=== PATIENT | male | born 1995 | race Two or more races ===

== ENCOUNTER 2016-10-05 23:30 | Emergency (ER) | payer MEDICAID ==
[~2016-10-05] VITALS: Ht 172.7 cm; Wt 68.0 kg
[2016-10-05 23:30] VITALS: BP 124/75
[2016-10-06] MEDS ORDERED: ONDANSETRON 4 MG TAB.RAPDIS ONE (00:18)
[2016-10-06] MEDS ORDERED: HYDROCODONE/APAP 10/325MG 1 EA TABLET ONE (00:18)
[2016-10-06] MEDS ORDERED: oxyCODONE/APAP (5/325 MG) 1 UDTAB TABLET ONE (00:22)
[2016-10-06] MEDS ORDERED: IBUPROFEN 400 MG TABLET ONE (00:22)
[2016-10-06] MEDS ORDERED: HYDROCODONE/APAP 10/325MG 1 EA TABLET PO ONE (00:30)
[2016-10-06] MEDS ORDERED: IBUPROFEN 400 MG TABLET PO ONE (00:30)
[2016-10-06] MEDS ORDERED: oxyCODONE/APAP (5/325 MG) 1 UDTAB TABLET PO ONE (00:30)
[2016-10-06] MEDS ORDERED: ONDANSETRON 4 MG TAB.RAPDIS SL ONE (00:30)
== END 2016-10-06 00:32 | disposition home or self-care (01) ==
LOC: ER 23:33
DX: S00.33XA Contusion of nose, initial encounter (principal); S20.212A Contusion of left front wall of thorax, initial encounter; S00.83XA Contusion of other part of head, initial encounter; Y04.0XXA Assault by unarmed brawl or fight, initial encounter; Y92.89 Other specified places as the place of occurrence of the external cause; Y93.89 Activity, other specified; Y99.8 Other external cause status
CPT/HCPCS: 99284; A4606; Q0162; Z7610

== ENCOUNTER 2016-12-23 19:30 | Emergency (ER) | payer MEDICAID ==
[~2016-12-23] VITALS: Ht 170.2 cm; Wt 54.4 kg
--- NOTE | 2016-12-23 19:52 | NUR ---
Pt bib self c/o "coughing up blood since i woke up" "left foot is asleep", NAD noted. Pt ambulatory. VSS. Awaiting md order
--- NOTE | 2016-12-23 19:58 | NUR ---
Shannan NEWS LIBRARY DIRECTOR at bedside for eval
--- NOTE | 2016-12-23 20:00 | NUR ---
called RT for breathing tx
--- NOTE | 2016-12-23 20:00 | NUR ---
Lab at bedside blood collected sent to lab
[2016-12-23] MEDS ORDERED: ALBUTEROL FS 2.5 MG/3 ML VIAL.NEB ONE (20:12)
--- NOTE | 2016-12-23 20:16 | NUR ---
xray at bedside
[2016-12-23] MEDS ORDERED: ALBUTEROL FS 2.5 MG/3 ML VIAL.NEB NEB ONE (20:30)
[2016-12-23 20:55] LABS: CALCIUM, SERUM 8.5 mg/dL (8.5-10.1); CREATININE 1.4 mg/dL (0.6-1.3); POTASSIUM 4.4 mmol/L (3.5-5.1)
[2016-12-23 20:57] LABS: BASOPHILS % (AUTO) 0.1 % (0.0-2.0); HEMATOCRIT 43 % (39-51); HEMOGLOBIN 13.9 g/dL (13.5-17.5); LYMPHOCYTES # (AUTO) 0.6 /CMM (0.8-4.8); LYMPHOCYTES % (AUTO) 2.2 % (20.0-44.0); MEAN CORPUSCULAR HEMOGLOBIN 27 PG (26.0-33.0); MEAN CORPUSCULAR HGB CONC 32 g/dl (31.0-36.0); MEAN CORPUSCULAR VOLUME 83 fL (80-96); MONOCYTES # (AUTO) 1.2 /CMM (0.1-1.30); MONOCYTES % (AUTO) 4.2 % (2.0-12.0); NEUTROPHILS # (AUTO) 26.5 /CMM (1.8-8.9); NEUTROPHILS % (AUTO) 93.5 % (43.0-81.0); PLATELET COUNT (AUTO) 314 /CMM (150-450); RDW COEFFICIENT OF VARIATION 13.6 (11.5-15.0); RED BLOOD CELL COUNT(AUTO) 5.24 MIL/uL (4.5-6.0); WHITE BLOOD COUNT (AUTO) 28.3 K/uL (4.3-11.0)
[2016-12-23] MEDS ORDERED: LEVOFLOXACIN (500MG) 500 MG TABLET PO ONE (21:30)
[2016-12-23] MEDS ORDERED: LEVOFLOXACIN (500MG) 500 MG TABLET ONE (21:37)
--- NOTE | 2016-12-23 21:39 | NUR ---
Patient discharged to home in stable condition. Written and verbal after care instructions given. Patient verbalizes understanding of instruction.
[2016-12-23 21:52] VITALS: BP 130/80
== END 2016-12-23 21:53 | disposition home or self-care (01) ==
LOC: ER 19:33
DX: J18.9 Pneumonia, unspecified organism (principal); J20.9 Acute bronchitis, unspecified; J45.909 Unspecified asthma, uncomplicated; K29.20 Alcoholic gastritis without bleeding; F17.200 Nicotine dependence, unspecified, uncomplicated; F12.90 Cannabis use, unspecified, uncomplicated; F41.9 Anxiety disorder, unspecified
CPT/HCPCS: 36415; 71010; 80048; 85025; 94640; 99285; A4606; Z7610

== ENCOUNTER 2017-02-16 19:30 | Inpatient (IN) | payer MEDICAID ==
[~2017-02-16] VITALS: Ht 172.7 cm; Wt 60.8 kg
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
[2017-02-16] MEDS ORDERED: NALOXONE HCL 0.4 MG/ML AMPUL ONE (19:37)
--- NOTE | 2017-02-16 19:45 | NUR ---
PATIENT IS FULLY AWAKE THIS TIME. REORIENTATION DONE. SAFETY MAINTAINED. VSS. SPONTANEOUSLY BREATHING EVEN AND UNLABORED. ABLE TO STAND AND WALK WITH STEADY GAIT. ENCOURAGED TO OBSERVE SAFETY MEASURES.
[2017-02-16 19:51] LABS: BASOPHILS # (AUTO) 0.1 /CMM (0.0-0.2); BASOPHILS % (AUTO) 0.6 % (0.0-2.0); EOSINOPHILS # (AUTO) 0.5 /CMM (0.0-0.7); EOSINOPHILS % (AUTO) 4.1 % (0.0-6.0); HEMATOCRIT 44 % (39-51); LYMPHOCYTES # (AUTO) 4.2 /CMM (0.8-4.8); LYMPHOCYTES % (AUTO) 33.2 % (20.0-44.0); MEAN CORPUSCULAR HEMOGLOBIN 27 PG (26.0-33.0); MEAN CORPUSCULAR HGB CONC 32 g/dl (31.0-36.0); MEAN CORPUSCULAR VOLUME 84 fL (80-96); MONOCYTES # (AUTO) 1.3 /CMM (0.1-1.30); MONOCYTES % (AUTO) 10.4 % (2.0-12.0); NEUTROPHILS # (AUTO) 6.5 /CMM (1.8-8.9); NEUTROPHILS % (AUTO) 51.7 % (43.0-81.0); PLATELET COUNT (AUTO) 328 /CMM (150-450); RDW COEFFICIENT OF VARIATION 12.4 (11.5-15.0); RED BLOOD CELL COUNT(AUTO) 5.28 MIL/uL (4.5-6.0); WHITE BLOOD COUNT (AUTO) 12.6 K/uL (4.3-11.0)
[2017-02-16] MEDS ORDERED: IV NS 0.9% 1,000 ML ONE ×2 (19:55→23:41)
[2017-02-16] MEDS ORDERED: IV SET PRIMARY 1 EA INFUS.SET MC ONE (19:55)
[2017-02-16 20:00] LABS: CALCIUM, SERUM 8.8 mg/dL (8.5-10.1); CARBON DIOXIDE 31 mmol/L (21-32); CHLORIDE 104 mmol/L (98-107); CREATININE 1.3 mg/dL (0.6-1.3); GLUCOSE 177 mg/dL (74-106); POTASSIUM 3.6 mmol/L (3.5-5.1); SODIUM SERUM 141 mmol/L (136-145); UREA NITROGEN, BLOOD 13 mg/dL (7-18)
[2017-02-16] MEDS ORDERED: NALOXONE HCL 0.4 MG/ML AMPUL IV ONE ×2 (20:00→21:30)
[2017-02-16] MEDS ORDERED: IV NS 0.9% 1,000 ML BAG IV ONE (20:00)
--- NOTE | 2017-02-16 20:01 | NUR ---
PATIENT TO CT.
[2017-02-16 20:02] LABS: ABG BASE EXCESS -2.6 mmol/L; ABG OXYGEN SATURATION 94.7 % (92.0-98.5); ABG PCO2 45.1 mmHg (35.0-45.0); ABG PH 7.333 (7.350-7.450); ABG PO2 79.9 mmHg (75.0-100.0); AaDO2 15.8 mmHg; COHb 0.7 % (0.5-1.5); MetHb 0.4 % (0.0-1.5); O2Hb 93.7 % (94.0-97.0); SITE, ABG Right Radial; VENT MODE, BG Room Air
[2017-02-16 20:03] LABS: INR 0.96 (0.87-1.13)
--- NOTE | 2017-02-16 20:05 | NUR ---
Patient returned from ct. Per radiology, patient was resisting to go into the cat scan room, grabbing doors and not cooperating/following instructions in [facility]. Dr Cortes notified.
[2017-02-16 20:07] LABS: TROPONIN I < 0.017 ng/mL (0.00-0.056)
[2017-02-16 20:16] LABS: ALANINE AMINOTRANSFERASE 37 U/L (12-78); ALBUMIN 3.7 g/dL (3.4-5.0); ALKALINE PHOSPHATASE 79 U/L (46-116); ASPARTATE AMINOTRANSFERASE 54 U/L (15-37); BILIRUBIN,DIRECT 0.1 mg/dL (0.0-0.2); BILIRUBIN,TOTAL 0.4 mg/dL (0.2-1.0); TOTAL PROTEIN, SERUM 7.3 g/dL (6.4-8.2)
--- NOTE | 2017-02-16 20:21 | NUR ---
Mother at bedside. Patient asked for water and was given with ice chips as Dr Cortes is "okay"
[2017-02-16 20:22] LABS: ACETAMINOPHEN < 2 ug/ml (10-30); SALICYLATE < 2.8 mg/dL (2.8-20.0)
--- NOTE | 2017-02-16 20:47 | NUR ---
urine collected via clean catch, lab called for belt picker.
--- NOTE | 2017-02-16 21:01 | NUR ---
CALLED NURSING OPERATION SPECIALIST FOR MICHELINE BED
[2017-02-16 21:14] LABS: APPEARANCE,URINE Clear (CLEAR); BILIRUBIN,URINE Negative (NEGATIVE); BLOOD, URINE Negative Ery/uL (NEGATIVE); COLOR,URINE Yellow (YELLOW); KETONES,URINE Negative (NEGATIVE); LEUKOCYTE ESTERASE ,URINE Negative (NEGATIVE); NITRITE, URINE Negative (NEGATIVE); PROTEIN,URINE 30 mg/dl (NEGATIVE); UGLUCOSE Negative (NEGATIVE); UROBILINOGEN,URINE 0.2 EU/dL (0.2)
[2017-02-16] MEDS ORDERED: NALOXONE PREFILLED SYRINGE 2 MG/2 ML SYRINGE ONE (21:16)
--- NOTE | 2017-02-16 21:23 | NUR ---
Narcan 2mg given ivp per Dr Cortes at bedside. Patient woke up after about a minute, reorientation done. safety maintained. and patient agreed for ct scan. called radiology.
[2017-02-16 21:34] LABS: BACTERIA,URINE Few /HPF (None Seen); RBC,URINE 0-2 /HPF (0-2); SQUAMOUS EPITHELIAL CELL,UR Few /HPF (None Seen); WBC,URINE 0-2 /HPF (0-3)
[2017-02-16] MEDS ORDERED: ONDANSETRON HCL/PF 4 MG/2 ML VIAL IVP PRN (22:00)
[2017-02-16] MEDS ORDERED: INSULIN REGULAR, HUMAN 100 UNIT/ML 3 ML VIAL SQ PRN (22:00)
[2017-02-16] MEDS ORDERED: ACETAMINOPHEN 325 MG TABLET PO PRN (22:00)
[2017-02-16] MEDS ORDERED: Z GUARD REMEDY 2 OZ OINT TP PRN (22:00)
[2017-02-16] MEDS ORDERED: MAGNESIUM HYDROXIDE 30 ML UDC PO PRN (22:00)
[2017-02-16] MEDS ORDERED: DEXTROSE 50%-WATER 50 ML DISP.SYRIN IV PRN (22:00)
--- NOTE | 2017-02-16 22:11 | NUR ---
Spoke with Erna, see supervisor, for icu bed.
--- NOTE | 2017-02-16 22:15 | NUR ---
ROOM 260 ICU BED
--- NOTE | 2017-02-16 22:33 | NUR ---
PT TRANSFERRED TO ROOM 260 IN STABLE CONDITION VIA ACLS PROTOCOL.
[2017-02-16] MEDS ORDERED: ALPR1TAB7 PO (22:51)
[2017-02-16 23:00] VITALS: BP 127/63
[2017-02-16] MEDS ORDERED: IV SET PRIMARY PUMP SET 1 EA INFUS.SET MC ONE (23:41)
[2017-02-16] MEDS: BLOOD SUGAR DIAGNOSTIC 1 EACH STRIP IN SCH (23:59)
[2017-02-17] VITALS (13 sets, daily range): BP systolic 98–137; BP diastolic 49–87
[2017-02-17] MEDS: IV NS 0.9% 1,000 ML BAG IV SCH ×3 (01:30→06:39)
[2017-02-17 04:56] LABS: BASOPHILS % (AUTO) 0.3 % (0.0-2.0); EOSINOPHILS # (AUTO) 0.2 /CMM (0.0-0.7); EOSINOPHILS % (AUTO) 2.6 % (0.0-6.0); HEMATOCRIT 36 % (39-51); HEMOGLOBIN 11.9 g/dL (13.5-17.5); LYMPHOCYTES # (AUTO) 1.8 /CMM (0.8-4.8); LYMPHOCYTES % (AUTO) 24.5 % (20.0-44.0); MEAN CORPUSCULAR HEMOGLOBIN 28 PG (26.0-33.0); MEAN CORPUSCULAR HGB CONC 33 g/dl (31.0-36.0); MEAN CORPUSCULAR VOLUME 83 fL (80-96); MONOCYTES # (AUTO) 0.6 /CMM (0.1-1.30); NEUTROPHILS # (AUTO) 4.8 /CMM (1.8-8.9); NEUTROPHILS % (AUTO) 64.6 % (43.0-81.0); PLATELET COUNT (AUTO) 219 /CMM (150-450); RDW COEFFICIENT OF VARIATION 13.2 (11.5-15.0); RED BLOOD CELL COUNT(AUTO) 4.31 MIL/uL (4.5-6.0); WHITE BLOOD COUNT (AUTO) 7.5 K/uL (4.3-11.0)
[2017-02-17 05:16] LABS: CREATININE 0.9 mg/dL (0.6-1.3); MAGNESIUM 1.8 mg/dL (1.8-2.4); PHOSPHORUS 3.4 mg/dL (2.5-4.9)
[2017-02-17] MEDS ORDERED: IV NS 0.9% 1,000 ML ONE (06:32)
--- NOTE | 2017-02-17 07:05 | NUR ---
BATCH TESTER NOTES RECEIVED PATIENT AWAKE , ALERT X 3 , LETHARGIC , NOT IN ACUTE DISTRESS , DENIES SOB AND DISCOMFORT AT THIS TIME , SPO2 OF 97% VIA RA , SB 59 ON BEDSIDE MONITOR , IV OF L AC # 18 AND R AC # 18 PATENT AND INTACT WITH NS @ 150ML/HR INFUSING WELL , ALL NEEDS ATTENDED , BED ON LOW AND LOCKED POSITION , SIDE RAILS X2 ,CALL LIGHT WITHIN REACH , HOB @ 45 , WILL CONTINUE TO MONITOR
[2017-02-17] MEDS: BLOOD SUGAR DIAGNOSTIC 1 EACH STRIP IN SCH ×4 (07:30→22:15)
--- NOTE | 2017-02-17 07:30 | NUR ---
NIGHT BAKER NOTES PT REFUSES ACCUCHECK , EXPLAINED THE BENEFITS OF IT , PATIENT VERBALIZED UNDERSTANDING , STILL REFUSES
--- NOTE | 2017-02-17 07:45 | NUR ---
INTERIM CONTROLLER NOTES PT ABLE TO TOLERATE REGULAR DIET , NO S/S OF ASPIRATION , MORE AWAKE AND ALERT X3 , WILL CONTINUE TO MONITOR
[2017-02-17] MEDS ORDERED: IV NS 0.9% 1,000 ML BAG IV SCH (09:00)
--- NOTE | 2017-02-17 09:00 | NUR ---
POSTPARTUM NURSE NOTES TRANSFERRED PT TO ROOM 323 - 1 VIA ACLS PROTOCOL , PT STABLE AT THIS TIME , REPORT GIVEN TO MERCED FOR CONTINUITY OF CARE
--- NOTE | 2017-02-17 09:15 | NUR ---
MS RN RECEIVED A NEW TRANSFER FROM ICU, A 21 YEAR OLD MALE, CAME IN W/ DRUG OVERDOSE, PATIENT IS VERY LETHARGIC, V/S STABLE, NSR ON MONITOR.
--- NOTE | 2017-02-17 09:30 | NUR ---
MS RN REFUSED BREAKFAST, STILL LETHARGIC.
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
--- NOTE | 2017-02-17 12:00 | NUR ---
MS RN PATIENT REFUSED TO CHECK SUGAR AT THIS TIME, SLEEPING A LOT.
--- NOTE | 2017-02-17 12:53 | NUR ---
WOUND CARE CONSULT: PT NOT SEEN YET FOR SKIN ASSESSMENT DUE TO PT SLEEPING SOUNDLY AT THIS TIME. WILL SEE PT PT CONDITION PERMITS. PER NURSING STAFF. PT HAS DRY ABRASIONS TO FACE.
[2017-02-17] MEDS: IV NS 0.9% 1,000 ML IV PRN ×2 (14:41→22:16)
[2017-02-17] MEDS: HYDROCODONE/APAP 5/325MG 1 EACH TABLET PO PRN ×2 (17:26→22:30)
--- NOTE | 2017-02-17 17:53 | NUR ---
MS RN ON BED, COMPLAIN OF PAIN ,CHARGE NURSE NOTIFIED, CHEST PAIN - OK TO GIVE NORCO PER CHARGE NURSE.
--- NOTE | 2017-02-17 18:00 | NUR ---
MS RN BLOOD SUGAR - 88 - NO COMPLAIN NOTED.
--- NOTE | 2017-02-17 19:57 | NUR ---
tele/rn opening notes patient in bed, awake. assisted for comfort . able to verbalize needs. can respond and cooperate. informed the need to use call light for assistance and for safety. will check any pain or any s/s of discomfort will continue to monitor. call lights within reach. water pitcher at bedside. bed in lock position monitoring for s/s of hypo/hyperglycemiaam rn gave endorsement for plan of care.
--- NOTE | 2017-02-17 22:26 | NUR ---
tele/rn notes patient awake, alertx3 can verbalize needs. cooperative to care. bs check at 97 w/ no coveerage. Able to eat some vegetables. ate half of plate and requeted for snacks, provided needs at all times. reported pain of 7/10in lower back. will adm po med norco 5/325 mg tab and monitor its effectiveness.
[2017-02-18] VITALS: BP 125/84
[2017-02-18 04:00] VITALS: BP 128/51
[2017-02-18] MEDS: BLOOD SUGAR DIAGNOSTIC 1 EACH STRIP IN SCH ×2 (06:36→12:16)
[2017-02-18 06:59] VITALS: BP 119/71
[2017-02-18 08:00] VITALS: BP 119/71
--- NOTE | 2017-02-18 08:09 | NUR ---
SCIENTIFIC PROGRAMMER ANALYST OPENING NOTES RECEIVED PATIENT ON BED SLEEPING, EASILY AROUSES. ALERT AND ORIENTED X 4. RESPIRATIONS EVEN AND UNLABORED. NO ACUTE DISTRESS NOTED. TELEMETRY SR 60. PATIENT HAS FACIAL ABRASIONS. IV SITE INTACT AND PATENT. BED IN LOWEST POSITION, CALL LIGHT WITHIN REACH. WILL CONTINUE TO MONITOR
[2017-02-18 08:23] LABS: BASOPHILS % (AUTO) 0.3 % (0.0-2.0); EOSINOPHILS # (AUTO) 0.2 /CMM (0.0-0.7); HEMATOCRIT 38 % (39-51); HEMOGLOBIN 12.5 g/dL (13.5-17.5); LYMPHOCYTES # (AUTO) 1.8 /CMM (0.8-4.8); LYMPHOCYTES % (AUTO) 28.3 % (20.0-44.0); MEAN CORPUSCULAR HEMOGLOBIN 27 PG (26.0-33.0); MEAN CORPUSCULAR HGB CONC 33 g/dl (31.0-36.0); MEAN CORPUSCULAR VOLUME 83 fL (80-96); MONOCYTES # (AUTO) 0.5 /CMM (0.1-1.30); MONOCYTES % (AUTO) 8.3 % (2.0-12.0); NEUTROPHILS # (AUTO) 3.8 /CMM (1.8-8.9); NEUTROPHILS % (AUTO) 60.1 % (43.0-81.0); PLATELET COUNT (AUTO) 233 /CMM (150-450); RDW COEFFICIENT OF VARIATION 12.9 (11.5-15.0); RED BLOOD CELL COUNT(AUTO) 4.61 MIL/uL (4.5-6.0); WHITE BLOOD COUNT (AUTO) 6.4 K/uL (4.3-11.0)
[2017-02-18 08:34] LABS: CALCIUM, SERUM 8.3 mg/dL (8.5-10.1); CREATININE 0.7 mg/dL (0.6-1.3); MAGNESIUM 1.5 mg/dL (1.8-2.4)
[2017-02-18] MEDS: IV NS 0.9% 1,000 ML IV PRN (11:15)
--- NOTE | 2017-02-18 12:01 | NUR ---
DESTIN met with pt. bedside to give him resources to alcohol and drug treatment programs. DESTIN gave pt. list of alcohol and drug treatment programs which included: [facility] ), [facility] , [facility] , [facility] , [facility] to name a few. DESTIN also gave pt. phone number to [facility] and mental health referrals to [facility] , [facility] and [facility] . DESTIN also sent an email to Mickey Covarrubias ([email or web address]) in intake and clinical director Tania Doll ([email or web address]) at [facility] inquiring if they have any availability in their inpatient treatment program for pt. with [employer] insurance.
[2017-02-18] MEDS ORDERED: Magnesium 1GM/D5W 100ML PREMIX 100 ML IV SCH (12:06)
[2017-02-18] MEDS ORDERED: SECONDARY IV SET 1 EA INFUS.SET MC ONE (13:25)
--- NOTE | 2017-02-18 13:58 | NUR ---
DESTIN met with pt. bedside to inform him that [facility] in [place] has an opening and if he would like to go there. Pt. declined and stated he will follow up on his own with the resources that were given to him by DESTIN.
[2017-02-18 15:00] VITALS: BP 121/71
--- NOTE | 2017-02-18 15:15 | NUR ---
IV SITE DISCONTINUED, NO REDNESS, NO BLEEDING. PATIENT TOLERATED WELL.
--- NOTE | 2017-02-18 15:25 | NUR ---
PATIENT DISCHARGED ACCOMPANIED BY MOTHER. DISCHARGE TEACHING AND EXIT CARE DONE. PATIENT STABLE VITAL SIGNS.
== END 2017-02-18 15:30 | disposition home or self-care (01) | DRG 816 ==
LOC: ER 19:31 → TELE-TD 21:43 → ICU 22:43 → TELE 02-17 08:43 → MED 02-18 11:15
PROVIDERS: ADMIT Family Medicine; ATTEND Family Medicine
DX: T40.1X1A Poisoning by heroin, accidental (unintentional), initial encounter (principal); G92 Toxic encephalopathy; R56.9 Unspecified convulsions; J45.909 Unspecified asthma, uncomplicated; T40.4X1A Poisoning by other synthetic narcotics, accidental (unintentional), initial encounter; F17.210 Nicotine dependence, cigarettes, uncomplicated; D72.829 Elevated white blood cell count, unspecified; R73.9 Hyperglycemia, unspecified; Y92.009 Unspecified place in unspecified non-institutional (private) residence as the place of occurrence of the external cause
CPT/HCPCS: 36415; 36600; 70450-TC; 71010-TC; 80048-TC; 80076-TC; 80305; 81000-TC; 82962-TC; 83735-TC; 84100-TC; 84484-TC; 85025-TC; 85730-TC; 87081-TC; A4606; G0480; J1815; J2310; J3475; J7030; Z7610

== ENCOUNTER → 2020-05-30 | Emergency (ER) | payer MEDICAID ==
[~2020-05-30] VITALS: Ht 172.7 cm; Wt 71.7 kg
[~2020-05-30] MED LIST: ALPR1TAB7 PO; IV NS 0.9% 1,000 ML BAG IV ONE; MORPHINE SULFATE INJ 2 MG/ML DISP.SYRIN IV ONE; MORPHINE SULFATE INJ 2 MG/ML DISP.SYRIN ONE; MORPHINE SULFATE INJ 4 MG/ML DISP.SYRIN ONE; ONDANSETRON HCL/PF 4 MG/2 ML VIAL IVP ONE; ONDANSETRON HCL/PF 4 MG/2 ML VIAL ONE
--- NOTE | 2020-05-30 17:38 | NUR ---
came in for nausea x 2 days. to ER bed 10, hooked to BP cuff and POX, changed to hosp gown, warm blanket provided, patient AAO x 4, breathing even and unlabored, NAD noted. awaiting MD mckeon.
--- NOTE | 2020-05-30 18:10 | NUR ---
urine sample collected and sent to lab
[2020-05-30 18:14] LABS: BASOPHILS % (AUTO) 0.3 % (0.0-2.0); EOSINOPHILS % (AUTO) 0.8 % (0.0-6.0); HEMATOCRIT 44 % (39-51); HEMOGLOBIN 14.7 g/dL (13.5-17.5); LYMPHOCYTES # (AUTO) 1.1 /CMM (0.8-4.8); LYMPHOCYTES % (AUTO) 14.1 % (20.0-44.0); MEAN CORPUSCULAR HGB CONC 33 g/dl (31.0-36.0); MEAN CORPUSCULAR VOLUME 82 fL (80-96); MONOCYTES # (AUTO) 0.8 /CMM (0.1-1.30); NEUTROPHILS % (AUTO) 74.8 % (43.0-81.0); PLATELET COUNT (AUTO) 310 /CMM (150-450); RED BLOOD CELL COUNT(AUTO) 5.39 MIL/uL (4.5-6.0)
[2020-05-30 18:33] LABS: ALBUMIN 4.1 g/dL (3.4-5.0); BILIRUBIN,DIRECT 0.2 mg/dL (0.0-0.2); BILIRUBIN,TOTAL 0.9 mg/dL (0.2-1.0); CALCIUM, SERUM 9.7 mg/dL (8.5-10.1); CREATININE 1.1 mg/dL (0.6-1.3); TOTAL PROTEIN, SERUM 8.1 g/dL (6.4-8.2)
[2020-05-30 18:51] LABS: POTASSIUM 3.6 mmol/L (3.5-5.1)
[2020-05-30 19:10] VITALS: BP 124/79
--- NOTE | 2020-05-30 19:16 | NUR ---
REPORT GIVEN TO RG RAM FOR JANIE
[2020-05-30 19:50] LABS: APPEARANCE,URINE CLEAR (CLEAR); BILIRUBIN,URINE SMALL (NEGATIVE); BLOOD, URINE NEGATIVE Ery/uL (NEGATIVE); COLOR,URINE DARK YELLO (YELLOW); KETONES,URINE 40 (NEGATIVE); LEUKOCYTE ESTERASE ,URINE NEGATIVE (NEGATIVE); NITRITE, URINE NEGATIVE (NEGATIVE); PH,URINE 8.5 (5.0-8.0); PROTEIN,URINE 30 mg/dl (NEGATIVE); UGLUCOSE NEGATIVE (NEGATIVE); UROBILINOGEN,URINE 0.2 EU/dL (0.2)
--- NOTE | 2020-05-30 19:58 | NUR ---
URINE COLELCTED AND SEN TTO LAB. SPOKE TO PT'S MOTHER REGARDING PLAN OF CARE.
[2020-05-30 20:08] LABS: BACTERIA,URINE None seen /HPF (None Seen); RBC,URINE 0-2 /HPF (0-2); SQUAMOUS EPITHELIAL CELL,UR None Seen /HPF (None Seen); WBC,URINE 0-2 /HPF (0-3)
[2020-05-30 20:09] LABS: MUCUS,URINE Few /LPF (None Seen); URINE AMORPHOUS PHOSPHATES Few /HPF (None Seen)
--- NOTE | 2020-05-30 20:27 | NUR ---
IV removed. Catheter intact and site benign. Pressure and 4x4 applied to site. No bleeding noted.
--- NOTE | 2020-05-30 20:27 | NUR ---
Patient discharged to home in stable condition. Written and verbal after care instructions given. Patient verbalizes understanding of instruction and rx. Pt ambulated with steady gait. vss.
--- NOTE | 2020-05-30 20:37 | NUR ---
UNABLE TO DEPART DUE TO COMPLICATION OF MEDICT.
== END | disposition home or self-care (01) ==
LOC: ER 17:36
DX: R10.32 Left lower quadrant pain (principal); K59.00 Constipation, unspecified; R11.2 Nausea with vomiting, unspecified; J45.909 Unspecified asthma, uncomplicated; F17.200 Nicotine dependence, unspecified, uncomplicated; Z79.899 Other long term (current) drug therapy
CPT/HCPCS: 36415; 74176; 80048; 80076; 81001; 82962; 83690; 85025; 96361; 96374; 96375; 96376; 99284; J2270 ×2; J2405; J7030 ×2; 81000-TC

== ENCOUNTER 2020-10-31 22:20 | Emergency (ER) | payer MEDICAID ==
[~2020-10-31] VITALS: Ht 172.7 cm; Wt 81.6 kg
[~2020-10-31 22:20] MED LIST changes: -IV NS 0.9% 1,000 ML BAG IV ONE; -MORPHINE SULFATE INJ 2 MG/ML DISP.SYRIN IV ONE; -MORPHINE SULFATE INJ 2 MG/ML DISP.SYRIN ONE; -MORPHINE SULFATE INJ 4 MG/ML DISP.SYRIN ONE; -ONDANSETRON HCL/PF 4 MG/2 ML VIAL IVP ONE; -ONDANSETRON HCL/PF 4 MG/2 ML VIAL ONE
--- NOTE | 2020-10-31 23:05 | NUR ---
HAMMER ADJUSTER AT BEDSIDE FOR BLOOD DRAW.
[2020-10-31 23:12] LABS: BASOPHILS # (AUTO) 0.3 /CMM (0.0-0.2); BASOPHILS % (AUTO) 2.9 % (0.0-2.0); EOSINOPHILS % (AUTO) 1.7 % (0.0-6.0); HEMATOCRIT 48 % (39-51); HEMOGLOBIN 15.9 g/dL (13.5-17.5); LYMPHOCYTES % (AUTO) 10.6 % (20.0-44.0); MEAN CORPUSCULAR HGB CONC 33 g/dl (31.0-36.0); MEAN CORPUSCULAR VOLUME 83 fL (80-96); MONOCYTES # (AUTO) 0.7 /CMM (0.1-1.30); MONOCYTES % (AUTO) 6.8 % (2.0-12.0); NEUTROPHILS # (AUTO) 7.6 /CMM (1.8-8.9); PLATELET COUNT (AUTO) 324 /CMM (150-450); RED BLOOD CELL COUNT(AUTO) 5.78 MIL/uL (4.5-6.0); WHITE BLOOD COUNT (AUTO) 9.7 K/uL (4.3-11.0)
--- NOTE | 2020-10-31 23:19 | NUR ---
PT TRANSPORTED TO RADIOLOGY FOR CT HEAD.
[2020-10-31] MEDS ORDERED: IV NS 0.9% 1,000 ML IV ONE (23:30)
[2020-10-31 23:31] LABS: CALCIUM, SERUM 9.5 mg/dL (8.5-10.1); CARBON DIOXIDE 32 mmol/L (21-32); CHLORIDE 99 mmol/L (98-107); GLUCOSE 77 mg/dL (74-106); POTASSIUM 4.1 mmol/L (3.5-5.1); SODIUM SERUM 139 mmol/L (136-145); UREA NITROGEN, BLOOD 9 mg/dL (7-18)
[2020-11-01] MEDS ORDERED: IV NS 0.9% 250 ML IV ONE (00:11)
[2020-11-01] MEDS ORDERED: IOHEXOL-350 100 ML VIAL IV ONE (00:11)
[2020-11-01] MEDS ORDERED: LORA-259 PO (00:56)
--- NOTE | 2020-11-01 01:21 | NUR ---
IV removed. Catheter intact and site benign. Pressure and 4x4 applied to site. No bleeding noted.
--- NOTE | 2020-11-01 01:21 | NUR ---
Patient discharged to home in stable condition. Written and verbal after care instructions given. Patient verbalizes understanding of instruction.
[2020-11-01 02:27] VITALS: BP 121/84
== END 2020-11-01 01:21 | disposition home or self-care (01) ==
LOC: ER 22:25
DX: S09.8XXA Other specified injuries of head, initial encounter (principal); R42 Dizziness and giddiness; J45.909 Unspecified asthma, uncomplicated; F10.10 Alcohol abuse, uncomplicated; F17.200 Nicotine dependence, unspecified, uncomplicated; Y90.9 Presence of alcohol in blood, level not specified; Z79.899 Other long term (current) drug therapy; W18.39XA Other fall on same level, initial encounter; Y93.89 Activity, other specified; Y92.89 Other specified places as the place of occurrence of the external cause; Y99.8 Other external cause status
CPT/HCPCS: 36415; 70450; 70496; 71045; 80048; 84484; 85025; 93005 ×2; 96360; 96361; 99285; J7050; Q9967

== ENCOUNTER 2021-05-02 20:10 | Emergency (ER) | payer MEDICAID ==
[~2021-05-02] VITALS: Ht 170.2 cm; Wt 81.6 kg
[~2021-05-02 20:10] MED LIST changes: +LORA-259 PO
--- NOTE | 2021-05-02 21:25 | NUR ---
PATIENT BIBMOTHER C/O TAKING FENTANYL AND HALLUCINATING FOR 5DAYS. PATIENT +S/I NO PLAN WANTS TO GET A PSYCH EVAL. PATIENT PLACED IN BED, PLACED IN GOWN. PATIENT BELONGINGS TAKEN AND PLACED IN SCURE LOCKER. SITTER AT BEDSIDE. PATIENT PLACED ON MONITORS. PATIENT IS A/O X 4, RR EVEN AND UNLABORED, NO SOB NOTED. WILL CONTINUE TO MONITOR.
--- NOTE | 2021-05-02 21:43 | NUR ---
covid swab sent to lab
[2021-05-02 21:54] LABS: BASOPHILS % (AUTO) 0.5 % (0.0-2.0); EOSINOPHILS % (AUTO) 1.6 % (0.0-6.0); HEMATOCRIT 42 % (39-51); HEMOGLOBIN 13.7 g/dL (13.5-17.5); LYMPHOCYTES # (AUTO) 2.2 K/uL (0.8-4.8); LYMPHOCYTES % (AUTO) 25.7 % (20.0-44.0); MEAN CORPUSCULAR HGB CONC 33 g/dl (31.0-36.0); MEAN CORPUSCULAR VOLUME 84 fL (80-96); MONOCYTES # (AUTO) 1.2 K/uL (0.1-1.30); MONOCYTES % (AUTO) 13.5 % (2.0-12.0); NEUTROPHILS % (AUTO) 58.7 % (43.0-81.0); PLATELET COUNT (AUTO) 292 K/uL (150-450); RED BLOOD CELL COUNT(AUTO) 4.97 MIL/uL (4.5-6.0); WHITE BLOOD COUNT (AUTO) 8.6 K/uL (4.3-11.0)
[2021-05-02 22:06] LABS: BILIRUBIN,URINE SMALL (NEGATIVE); COLOR,URINE YELLOW (YELLOW); LEUKOCYTE ESTERASE ,URINE Negative (NEGATIVE); NITRITE, URINE Negative (NEGATIVE); PROTEIN,URINE 100 mg/dl (NEGATIVE); UGLUCOSE Negative (NEGATIVE); UROBILINOGEN,URINE 0.2 EU/dL (0.2)
[2021-05-02 22:09] LABS: ALANINE AMINOTRANSFERASE 20 U/L (12-78); ALBUMIN 4.8 g/dL (3.4-5.0); ALCOHOL, BLOOD < 3 mg/dL (0-0); ALKALINE PHOSPHATASE 73 U/L (46-116); ASPARTATE AMINOTRANSFERASE 19 U/L (15-37); BILIRUBIN,DIRECT 0.1 mg/dL (0.0-0.2); BILIRUBIN,TOTAL 0.6 mg/dL (0.2-1.0); CALCIUM, SERUM 9.4 mg/dL (8.5-10.1); CARBON DIOXIDE 25 mmol/L (21-32); CHLORIDE 105 mmol/L (98-107); GLUCOSE 85 mg/dL (74-106); POTASSIUM 3.8 mmol/L (3.5-5.1); SODIUM SERUM 142 mmol/L (136-145); TOTAL PROTEIN, SERUM 8.3 g/dL (6.4-8.2); UREA NITROGEN, BLOOD 20 mg/dL (7-18)
[2021-05-02 22:10] LABS: ACETAMINOPHEN < 2 ug/ml (10-30)
[2021-05-02 22:21] LABS: BACTERIA,URINE Rare /HPF (None Seen); SQUAMOUS EPITHELIAL CELL,UR Few /HPF (None Seen); WBC,URINE NONE SEEN /HPF (0-3)
--- NOTE | 2021-05-02 22:43 | NUR ---
CALLED CLINICAL DATA ANALYST TO EVALUATE PT.
--- NOTE | 2021-05-03 00:08 | NUR ---
mother corby, call back for updates [phone]
--- NOTE | 2021-05-03 00:10 | NUR ---
SEASONAL CUSTOMER SERVICE ASSOCIATE AT BEDSIDE
[2021-05-03] MEDS ORDERED: HALOPERIDOL LACTATE INJ 5 MG/ML VIAL ONE (00:17)
[2021-05-03] MEDS ORDERED: diphenhydrAMINE HCL 50 MG/ML VIAL ONE (00:17)
[2021-05-03] MEDS ORDERED: LORAZEPAM INJ 2 MG/ML VIAL ONE (00:17)
[2021-05-03] MEDS ORDERED: LORAZEPAM INJ 2 MG/ML VIAL IM ONE (00:30)
[2021-05-03] MEDS ORDERED: HALOPERIDOL LACTATE INJ 5 MG/ML VIAL IM ONE (00:30)
[2021-05-03] MEDS ORDERED: diphenhydrAMINE HCL 50 MG/ML VIAL IM ONE (00:30)
--- NOTE | 2021-05-03 01:15 | NUR ---
PT ATTACHED TO MONITOR AND POX. VSS
--- NOTE | 2021-05-03 04:10 | NUR ---
covid pcr collected sent to lab
--- NOTE | 2021-05-03 05:30 | NUR ---
pt accepted to [facility] by Dr. Sharp. Pt going to rm [id number]. number for report to follow.
--- NOTE | 2021-05-03 05:45 | NUR ---
REPORT GIVEN TO FELECIA
--- NOTE | 2021-05-03 06:01 | NUR ---
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 eta 60-75 min
[2021-05-03 07:45] VITALS: BP 121/68
--- NOTE | 2021-05-03 08:46 | NUR ---
THE PATIENT IS TRANSFERED TO [facility] IN STABLE CONDITION AND VIA ARRANGED TRANSPO.
== END 2021-05-03 08:50 ==
LOC: ER 20:10
DX: F29 Unspecified psychosis not due to a substance or known physiological condition (principal); F19.10 Other psychoactive substance abuse, uncomplicated; J45.909 Unspecified asthma, uncomplicated; R45.851 Suicidal ideations; Z20.822 Contact with and (suspected) exposure to COVID-19
CPT/HCPCS: 36415; 80048; 80076; 80143; 80307; 80320; 81001; 85025; 87426; 96372 ×2; 99285; C9803 ×2; J1200; J1630; J2060; U0003; G0480